=== PATIENT | female | born 1980 | race African-American/Black ===

== ENCOUNTER 2020-07-17 12:34 | Inpatient (IN) | payer OTHER ==
[2020-07-17 13:25] VITALS: BMI 35.4
[2020-07-17] MEDS ORDERED: hydrOXYzine PAMOATE 25 MG CAPSULE (FP) PO PRN (17:50)
[2020-07-17] MEDS ORDERED: LOPERAMIDE HCL 2 MG CAPSULE PO PRN (17:50)
[2020-07-17] MEDS ORDERED: IBUPROFEN 400 MG TABLET (FP) PO PRN (17:50)
[2020-07-17] MEDS ORDERED: MAGNESIUM HYDROX 2400MG/30ML ORAL SUSPENSION 30 ML CUP PO PRN (17:50)
[2020-07-17] MEDS ORDERED: P-EPHED 60MG/TRIPROLIDI 2.5MG TABLET PO PRN (17:50)
[2020-07-17] MEDS ORDERED: guaiFENesin 200 MG/10 ML 10 ML UNIT-DOSE CUPS PO PRN (17:50)
[2020-07-17] MEDS ORDERED: MAGNESIUM CITRATE 300 ML BOTTLE PO PRN (17:50)
[2020-07-17] MEDS ORDERED: MAG HYDROX/AL HYDROX/SIMETH 30 ML UNIT-DOSE CUP PO PRN (17:50)
[2020-07-17] MEDS ORDERED: ACETAMINOPHEN 325 MG TABLET (FP) PO PRN (17:50)
[2020-07-17] MEDS ORDERED: TUBERCULIN PPD 5 TU/0.1ML VIAL ID ONE (19:28)
[2020-07-17] MEDS: THIAMINE HCL 100 MG TABLET (FP) PO SCH (21:45)
[2020-07-17] MEDS: MELATONIN 5 MG TABLETS PO SCH (21:45)
[2020-07-18] MEDS: PRENATAL VITAMINS W/ FOLIC ACID TABLET (FP) PO SCH (10:01)
[2020-07-18 10:05] LABS: HEMATOCRIT 31.3 % (32.4-45.2); HEMOGLOBIN 9.5 GM/dL (10.7-15.3); MCH 20.9 pg (25.7-33.7); MCHC 30.2 g/dl (32.0-36.0); MEAN PLT VOLUME 9.5 fl (7.5-11.1); PLATELET COUNT 227 K/MM3 (134-434); RBC 4.54 M/mm3 (3.60-5.2); RDW 18.8 % (11.6-15.6)
[2020-07-18 10:15] LABS: ALBUMIN 3.8 g/dl (3.4-5.0); BLOOD UREA NITROGEN 7.9 mg/dL (7-18)
[2020-07-18 10:16] LABS: CALCIUM 9.5 mg/dL (8.5-10.1)
[2020-07-18 10:18] LABS: CREATININE 0.7 mg/dL (0.55-1.3)
[2020-07-18 10:20] LABS: BILIRUBIN,TOTAL 0.8 mg/dL (0.2-1); TOT PROT 8.4 g/dl (6.4-8.2)
[2020-07-18] MEDS: FERROUS SO4 325 MG TABLET (FP) PO SCH (17:16)
[2020-07-18 19:08] LABS: PH,URINE 6.5 (5.0-8.0); URINE APPEARANCE CLOUDY; URINE BILIRUBIN NEGATIVE (NEGATIVE); URINE COLOR YELLOW; URINE GLUCOSE (UA) NEGATIVE (NEGATIVE); URINE KETONE NEGATIVE (NEGATIVE); URINE LEUK ESTERASE NEGATIVE (NEGATIVE); URINE NITRITE NEGATIVE (NEGATIVE); URINE PROTEIN NEGATIVE (NEGATIVE); URINE UROBILINOGEN 0.2 mg/dL (0.2-1.0)
[2020-07-18] MEDS: MELATONIN 5 MG TABLETS PO SCH (21:34)
[2020-07-18] MEDS: THIAMINE HCL 100 MG TABLET (FP) PO SCH (21:34)
[2020-07-19] MEDS: FERROUS SO4 325 MG TABLET (FP) PO SCH ×3 (07:00→18:15)
[2020-07-19] MEDS: PRENATAL VITAMINS W/ FOLIC ACID TABLET (FP) PO SCH (09:50)
[2020-07-19] MEDS: MELATONIN 5 MG TABLETS PO SCH (21:44)
[2020-07-19] MEDS: THIAMINE HCL 100 MG TABLET (FP) PO SCH (21:45)
[2020-07-20] MEDS: FERROUS SO4 325 MG TABLET (FP) PO SCH ×3 (07:38→18:21)
[2020-07-20] MEDS: PRENATAL VITAMINS W/ FOLIC ACID TABLET (FP) PO SCH (09:55)
[2020-07-20] MEDS: MELATONIN 5 MG TABLETS PO SCH (22:05)
[2020-07-20] MEDS: THIAMINE HCL 100 MG TABLET (FP) PO SCH (22:05)
[2020-07-21] MEDS: FERROUS SO4 325 MG TABLET (FP) PO SCH ×3 (07:04→18:20)
[2020-07-21] MEDS: PRENATAL VITAMINS W/ FOLIC ACID TABLET (FP) PO SCH (09:56)
[2020-07-21 14:07] LABS: SARS-CoV-2 NAA Not Detected (Not Detected)
[2020-07-21] MEDS: MELATONIN 5 MG TABLETS PO SCH (21:36)
[2020-07-21] MEDS: THIAMINE HCL 100 MG TABLET (FP) PO SCH (21:37)
[2020-07-22] MEDS: FERROUS SO4 325 MG TABLET (FP) PO SCH ×3 (07:27→17:11)
[2020-07-22] MEDS: PRENATAL VITAMINS W/ FOLIC ACID TABLET (FP) PO SCH (09:42)
[2020-07-22] MEDS: THIAMINE HCL 100 MG TABLET (FP) PO SCH (21:32)
[2020-07-22] MEDS: MELATONIN 5 MG TABLETS PO SCH (21:32)
[2020-07-23] MEDS: FERROUS SO4 325 MG TABLET (FP) PO SCH ×3 (07:15→16:47)
[2020-07-23] MEDS: PRENATAL VITAMINS W/ FOLIC ACID TABLET (FP) PO SCH (09:35)
[2020-07-23] MEDS: THIAMINE HCL 100 MG TABLET (FP) PO SCH (21:29)
[2020-07-23] MEDS: MELATONIN 5 MG TABLETS PO SCH (21:29)
[2020-07-24] MEDS: FERROUS SO4 325 MG TABLET (FP) PO SCH ×3 (07:05→18:18)
[2020-07-24] MEDS: PRENATAL VITAMINS W/ FOLIC ACID TABLET (FP) PO SCH (10:07)
[2020-07-24] MEDS: MELATONIN 5 MG TABLETS PO SCH (22:55)
[2020-07-24] MEDS: THIAMINE HCL 100 MG TABLET (FP) PO SCH (22:55)
[2020-07-25] MEDS: FERROUS SO4 325 MG TABLET (FP) PO SCH ×3 (07:12→17:34)
[2020-07-25] MEDS: PRENATAL VITAMINS W/ FOLIC ACID TABLET (FP) PO SCH (10:08)
[2020-07-25] MEDS: THIAMINE HCL 100 MG TABLET (FP) PO SCH (21:50)
[2020-07-25] MEDS: MELATONIN 5 MG TABLETS PO SCH (21:50)
[2020-07-26] MEDS: FERROUS SO4 325 MG TABLET (FP) PO SCH ×3 (07:01→17:20)
[2020-07-26] MEDS: PRENATAL VITAMINS W/ FOLIC ACID TABLET (FP) PO SCH (09:58)
[2020-07-26] MEDS: MELATONIN 5 MG TABLETS PO SCH (22:44)
[2020-07-26] MEDS: THIAMINE HCL 100 MG TABLET (FP) PO SCH (22:44)
[2020-07-27] MEDS: FERROUS SO4 325 MG TABLET (FP) PO SCH ×3 (07:57→16:52)
[2020-07-27] MEDS: PRENATAL VITAMINS W/ FOLIC ACID TABLET (FP) PO SCH (09:52)
[2020-07-27] MEDS: THIAMINE HCL 100 MG TABLET (FP) PO SCH (21:51)
[2020-07-27] MEDS: MELATONIN 5 MG TABLETS PO SCH (21:51)
[2020-07-28 07:08] VITALS: BP 118/79; PULSE 83; TEMP 97.5
[2020-07-28] MEDS: FERROUS SO4 325 MG TABLET (FP) PO SCH (07:16)
[2020-07-28] MEDS: PRENATAL VITAMINS W/ FOLIC ACID TABLET (FP) PO SCH (09:49)
== END 2020-07-28 10:30 | disposition home or self-care (01) | DRG 772 ==
LOC: YASAS 12:34 → Y5N 17:56
PROVIDERS: ADMIT Allergy & Immunology; ATTEND Allergy & Immunology
PROC: HZ42ZZZ Group Counseling for Substance Abuse Treatment, Cognitive-Behavioral (ICD-10-PCS; principal; 2020-07-17)
DX: F10.20 Alcohol dependence, uncomplicated (principal); F12.20 Cannabis dependence, uncomplicated; F19.282 Other psychoactive substance dependence with psychoactive substance-induced sleep disorder; F19.24 Other psychoactive substance dependence with psychoactive substance-induced mood disorder; F39 Unspecified mood [affective] disorder; F43.10 Post-traumatic stress disorder, unspecified; F32.9 Major depressive disorder, single episode, unspecified; F60.9 Personality disorder, unspecified; D50.9 Iron deficiency anemia, unspecified; I10 Essential (primary) hypertension; J20.9 Acute bronchitis, unspecified; Z91.410 Personal history of adult physical and sexual abuse; Z65.3 Problems related to other legal circumstances
CPT/HCPCS: 36415; 80053; 81003; 85027; 86780; C9803; U0003; U0005